=== PATIENT | female | born 1955 | race Caucasian/White ===

== ENCOUNTER 2016-10-12 10:56 | Emergency (ER) | payer OTHER ==
--- NOTE | ~2016-10-12 | CT71 ---
[facility] A Service of [facility] & [facility] RADIOLOGY TEXT RESULTS PATIENT: LUCIA CABEZAS LOCATION: [facility] : 59 UNIT #: [id number] AGE: [address]: Chidi Mckenzie MD SEX: F ORDER DR: [id number] [facility] [address] [place], [place] [address] [id number] E MR#: [id number] Acc #: [id number] NAME: LUCIA CABEZAS : 1955 SEX: F STUDY DATE/TIME: 10/12/2016 11:23 UNIT: [facility] ROOM: STUDY DESCRIPTION: CT Head Wo Contrast Attending Physician: Chidi Mckenzie M.D. Referring Physician: Primary Care Physician No Ordering Physician: Chidi Mckenzie M.D. Primary Care Physician: Primary Care Physician No MEDICAL IMAGING REPORT This report is preliminary unless electronic signature is present EXAM CT head without contrast INDICATIONS Generalized weakness, falling. Symptoms today. COMPARISON 08/04/[address] exam was performed with one or more of the following radiation dose reduction techniques: automatic exposure control, adjustment of mA and/or kV according to patient size, and iterative reconstruction. FINDINGS No evidence of intracranial hemorrhage, acute cortical based infarction, focal mass lesion, or hydrocephalus. The included orbits and paranasal sinuses are unremarkable. The bone windows are unremarkable. IMPRESSION No acute intracranial abnormality. Dictated by... Jasiel Bright M.D. THIS IS AN ELECTRONICALLY VERIFIED REPORT Jasiel Bright M.D. at 10/13/2016 9:19 AM Danielle TD: 10/12/2016 13:57 JOB #: [id number] MEDICAL IMAGING REPORT Page 1 of 1 COPY
--- NOTE | ~2016-10-12 | CR2 ---
[facility] A Service of [facility] & [facility] RADIOLOGY TEXT RESULTS PATIENT: LUCIA CABEZAS LOCATION: [facility] : 59 UNIT #: [id number] AGE: [address]: Chidi Mckenzie MD SEX: F ORDER DR: [id number] [facility] [address] [place], [place] [address] [id number] E MR#: [id number] Acc #: [id number] NAME: LUCIA CABEZAS : 1955 SEX: F STUDY DATE/TIME: 10/12/2016 10:25 UNIT: [facility] ROOM: STUDY DESCRIPTION: CR Abdomen Acute Series Attending Physician: Chidi Mckenzie M.D. Ordering Physician: Chidi Mckenzie M.D. MEDICAL IMAGING REPORT This report is preliminary unless electronic signature is present EXAM Acute abdominal series INDICATIONS Shortness of breath, cough, constipation for [address] abdomen and pelvis from 01/14/2015. FINDINGS There is atelectasis in the lung bases. There is no free air under the diaphragm. The bowel gas pattern is non-obstructed. Cholecystectomy clips. Degenerative changes lumbar spine. IMPRESSION Non-obstructed bowel gas pattern. Dictated by... Jasiel Bright M.D. THIS IS AN ELECTRONICALLY VERIFIED REPORT Jasiel Bright M.D. at 10/13/2016 9:19 AM ARS/pcl TD: 10/12/2016 11:39 JOB #: [id number] MEDICAL IMAGING REPORT Page 1 of 1 COPY
--- NOTE | ~2016-10-12 | EKG ---
PATIENT: LUCIA CABEZAS UNIT #: [id number] Ventricular Rate: 100 BPM Atrial Rate: 100 BPM P-R Interval: 162 ms QRS Duration: 84 ms Q-T Interval: 350 ms QTC Calculation(Bezet): 451 ms P [place]: 49 degrees Calculated R [place]: -68 degrees Calculated T [place]: 41 degrees Diagnosis Line: Normal sinus rhythm Diagnosis Line: Possible Left atrial enlargement Diagnosis Line: Left axis deviation Diagnosis Line: Cannot rule out Inferior infarct , age Diagnosis Line: undetermined Diagnosis Line: Abnormal ECG Diagnosis Line: When compared with ECG of 16-JAN-2016 20:31, Diagnosis Line: QRS axis Shifted left Diagnosis Line: Confirmed by ROSEMARIE HART MD ([id number]) on 10/12/2016 Diagnosis Line: 6:39:38 PM INTERPRETING MD: HAILEY JHA
[2016-10-12 10:35] LABS: BASOPHIL# 0.1 X10e3 (0-0.3); BASOPHIL% 1.2 % (0-2.5); EOSINOPHIL# 0.2 X10e3 (0-0.7); EOSINOPHIL% 2.7 % (0.0-7.0); HEMOGLOBIN 13.5 gm/dL (12.0-16.0); LYMPHOCYTE# 1.5 X10e3 (1.0-3.5); LYMPHOCYTE% 16.2 % (17.0-45.0); MEAN CELL VOLUME 94.3 FL (83-96); MEAN CORPUSCULAR HEMOGLOBIN 30.3 PG (28-34); MEAN CORPUSCULAR HGB CONC 32.1 g/dL (30-36); MEAN PLATELET VOLUME 10.8 FL (6.5-11.5); MONOCYTE# 0.6 X10e3 (0-1.0); MONOCYTE% 6.5 % (3.0-12.0); NEUTROPHIL# 6.6 X10e3 (1.5-7.1); NEUTROPHIL% 73.4 % (40-75); PLATELET COUNT 214 X10e3 (140-420); RED BLOOD COUNT 4.45 X10e (3.90-5.30); RED CELL DISTRIBUTION WIDTH 12.9 % (11.0-15.5); WHITE BLOOD COUNT 9.1 X10e3 (4.0-10.5)
[2016-10-12 10:41] LABS: DIFF IND NO
[~2016-10-12 10:56] MED LIST: ASPIRIN81 M2 PO; CARDIZEM60 MG PO; CYCLOBENZAPRINE5 MG PO; HYDROCHLOROTHIA25 MG PO; KLONOPIN PO; LIPITOR20 MG PO; MOBIC7.5 MG/5 M PO; NICOTINE1 EAC1 TD; SEROQUEL300 MG PO; SYNTHROID0.1 MG PO; TOPAMAX50 MG PO
[2016-10-12 10:58] LABS: INR 0.9; PARTIAL THROMBOPLASTIN TIME 23.1 SECONDS (23.5-31.3); PROTHROMBIN TIME (PATIENT) 9.8 SECONDS (9.6-11.5)
[2016-10-12 11:10] LABS: ALBUMIN SERUM 3.8 g/dL (3.5-5.0); ALKALINE PHOSPHATASE 89 U/L (32-92); ALT (SGPT) 21 U/L (10-40); AST (SGOT) 16 U/L (10-42); BILIRUBIN, DIRECT 0.1 mg/dL (0.0-0.2); BILIRUBIN,INDIRECT 0.4 mg/dL (0.0-0.9); BILIRUBIN,TOTAL 0.5 mg/dL (0.2-2.0); BLOOD UREA NITROGEN 7 mg/dL (9-23); BUN/CREATININE RATIO 4.66; CALCIUM SERUM 9.3 mg/dL (8.4-10.2); CARBON DIOXIDE 24 mmol/L (22-31); CHLORIDE 109 mmol/L (100-111); CREATININE SERUM 1.5 mg/dL (0.6-1.4); GLOM FILT RATE Estimated 37.8 mL/min (>60); GLUCOSE FASTING 177 mg/dL (70-110); POTASSIUM 3.9 mmol/L (3.5-5.1); PROTEIN TOTAL SERUM 6.7 g/dL (6.0-8.3); SODIUM 139 mmol/L (135-145)
[2016-10-12 11:11] LABS: ALCOHOL BLOOD <5 mg/dL ([, 0])
[2016-10-12 12:00] LABS: POC - CKMB 1.3 ng/mL (0.0-7.9); POC - TROPONIN <0.05 ng/mL (<=0.05)
[2016-10-12 12:09] LABS: URINE SOURCE CLEAN CATCH
[2016-10-12 12:16] LABS: URINE APPEARANCE CLEAR; URINE BILIRUBIN NEG (NEG); URINE BLOOD NEG (NEG); URINE COLOR YELLOW; URINE GLUCOSE NEG (NEG); URINE KETONE NEG (NEG); URINE LEUKOCYTE ESTERASE NEG (NEG); URINE NITRATE NEG (NEG); URINE PH 6.5 (5-8); URINE PROTEIN NEG (NEG); URINE SPECIFIC GRAVITY 1.006 (1.003-1.035); URINE UROBILINOGEN 0.2 MG/DL (NEG)
[2016-10-12 12:19] LABS: CULTURE INDICATED? NO
[2016-10-12 12:45] LABS: AMPHETAMINE NEG (NEG); BARBITURATES NEG (NEG); BENZODIAZEPINES POS (NEG); COCAINE NEG (NEG); MARIJUANA NEG (NEG); OPIATES POS (NEG); TRICYCLIC ANTIDEPRESSANTS POS (NEG); U METHADONE NEG (NEG)
[2016-10-12 12:45] LABS: POC - CKMB 1.3 ng/mL (0.0-7.9); POC - TROPONIN <0.05 ng/mL (<=0.05)
[2017-01-21] MEDS ORDERED: TOPAMAX PO (12:31)
[2017-01-21] MEDS ORDERED: HYDRALAZINE HCL25 MG PO (12:32)
[2017-01-21] MEDS ORDERED: LEVOTHYROXINE88 MCG PO (12:32)
[2017-01-21] MEDS ORDERED: DESYREL50 MG PO (12:33)
[2017-01-21] MEDS ORDERED: QUETIAPINE FUM200 MG PO (12:33)
[2017-01-21] MEDS ORDERED: QUETIAPINE FUMA25 MG PO (12:33)
[2017-01-21] MEDS ORDERED: AMLODIPINE BESYL5 MG PO (12:33)
[2017-01-21] MEDS ORDERED: LAMICTAL150 MG PO (12:34)
[2017-01-21] MEDS ORDERED: GLUCOTROL PO (12:34)
[2017-01-21] MEDS ORDERED: LASIX PO (12:34)
[2017-01-21] MEDS ORDERED: KLONOPIN1 MG PO (12:35)
== END 2016-10-12 13:29 | disposition home or self-care (01) ==
LOC: CED 10:56
PROVIDERS: Emergency Medicine
DX: J40 Bronchitis, not specified as acute or chronic (principal); R53.1 Weakness; I12.9 Hypertensive chronic kidney disease with stage 1 through stage 4 chronic kidney disease, or unspecified chronic kidney disease; N18.9 Chronic kidney disease, unspecified; F17.200 Nicotine dependence, unspecified, uncomplicated; F31.9 Bipolar disorder, unspecified; B19.20 Unspecified viral hepatitis C without hepatic coma; Z88.0 Allergy status to penicillin; Z91.040 Latex allergy status
CPT/HCPCS: 36415; 70450; 74022; 80048; 80076; 80307; 81003; 82553; 82947; 84484; 85025; 85610; 85730; 93005; 94640; 96360; 99283; 99284; G0480

== ENCOUNTER → 2017-01-22 | Outpatient (CLI) | payer OTHER ==
[~2017-01-22] VITALS: Ht 170.2 cm; Wt 79.6 kg
[~2017-01-22] MED LIST changes: +AMLODIPINE BESYL5 MG PO; +DESYREL50 MG PO; +GLUCOTROL PO; +HYDRALAZINE HCL25 MG PO; +KLONOPIN1 MG PO; +LAMICTAL150 MG PO; +LASIX PO; +LEVOTHYROXINE88 MCG PO; +QUETIAPINE FUM200 MG PO; +QUETIAPINE FUMA25 MG PO; +TOPAMAX PO
--- NOTE | ~2017-01-22 | XA51 ---
[facility] A Service of [facility] & [facility] RADIOLOGY TEXT RESULTS PATIENT: LUCIA CABEZAS LOCATION: [facility] : 59 UNIT #: [id number] AGE: [address]: Conor Caballero MD SEX: F ORDER DR: [id number] [id number] [place], [place] [address] [id number] O MR#: [id number] Acc #: [id number] NAME: LUCIA CABEZAS : 1955 SEX: F STUDY DATE/TIME: 01/22/2017 8:01 UNIT: [facility] ROOM: STUDY DESCRIPTION: XA BX Bone Marrow Attending Physician: Conor Caballero M.D. Ordering Physician: Conor Caballero M.D. Primary Care Physician: No Primary Care Physician MEDICAL IMAGING REPORT This report is preliminary unless electronic signature is present EXAM Bone marrow biopsy. INDICATION Multiple myeloma with hypercalcemia. FINDINGS Please see CT GUIDE for result text. Dictated by... Britney David M.D. THIS IS AN ELECTRONICALLY VERIFIED REPORT Britney David M.D. at 01/23/2017 4:45 PM AFF/luis manuel TD: 01/23/2017 09:19 JOB #: [id number] MEDICAL IMAGING REPORT Page 1 of 1 COPY
--- NOTE | ~2017-01-22 | CT134 ---
[facility] A Service of [facility] & [facility] RADIOLOGY TEXT RESULTS PATIENT: LUCIA CABEZAS LOCATION: [facility] : 59 UNIT #: [id number] AGE: [address]: Conor Caballero MD SEX: F ORDER DR: [id number] [facility] [place], [place] [address] [id number] O MR#: [id number] Acc #: [id number] NAME: LUCIA CABEZAS : 1955 SEX: F STUDY DATE/TIME: 01/22/2017 8:01 UNIT: [facility] ROOM: STUDY DESCRIPTION: CT Guide Attending Physician: Conor Caballero M.D. Ordering Physician: Conor Caballero M.D. Primary Care Physician: No Primary Care Physician MEDICAL IMAGING REPORT This report is preliminary unless electronic signature is present EXAM CT-guided bone marrow biopsy. INDICATION Multiple myeloma with hypercalcemia. TECHNIQUE This CT exam was performed with one or more of the following radiation dose reduction techniques: automatic exposure control, adjustment of mA and/or kV according to patient size, and iterative reconstruction. PROCEDURE There risks, benefits, and alternatives to the procedure were explained to the patient and signed informed consent was obtained. Patient was placed prone on the CT scanner gantry. Preliminary CT scan was performed through the region of interest. An appropriate site overlying the left iliac bone was selected. The overlying skin was marked. Patient was prepped and draped in the usual sterile fashion. Time-out was performed as per protocol. Skin and subcutaneous tissues were anesthetized with buffered lidocaine and a bone marrow biopsy needle was advanced into the left iliac bone. Repeat CT scan confirmed appropriate trajectory of the needle which was then advanced into the bone. Bone marrow aspirate was obtained. Following this, the needle was advanced further into the marrow and then removed which appeared to yield an adequate core sample. Manual pressure was applied until hemostasis was obtained. The patient did receive moderate sedation consisting of 8 mg of Versed and 200 mcg of fentanyl. I supervised the IVR nurse and monitored the patient's vital signs for a total of 10 minutes of [id number] time. IMPRESSION Technically successful bone marrow biopsy as noted above. CT was used during the procedure and permanent images were saved. [facility] A Service of [facility] & [facility] RADIOLOGY TEXT RESULTS PATIENT: LUCIA CABEZAS LOCATION: [facility] : 59 UNIT #: [id number] AGE: [address]: Conor Caballero MD SEX: F ORDER DR: Dictated by... Britney David M.D. THIS IS AN ELECTRONICALLY VERIFIED REPORT Britney David M.D. at 01/23/2017 4:45 PM AFF/luis manuel TD: 01/23/2017 09:15 JOB #: [id number] MEDICAL IMAGING REPORT Page 1 of 1 COPY
[2017-01-22 07:08] LABS: HEMATOCRIT 47.4 % (35.0-45.0); HEMOGLOBIN 15.7 gm/dL (12.0-16.0); MEAN CELL VOLUME 92.3 FL (83-96); MEAN CORPUSCULAR HEMOGLOBIN 30.6 PG (28-34); MEAN CORPUSCULAR HGB CONC 33.2 g/dL (30-36); MEAN PLATELET VOLUME 9.3 FL (6.5-11.5); RED BLOOD COUNT 5.13 X10e (3.90-5.30); RED CELL DISTRIBUTION WIDTH 13.3 % (11.0-15.5); WHITE BLOOD COUNT 7.6 X10e3 (4.0-10.5)
[2017-01-22 07:21] LABS: PARTIAL THROMBOPLASTIN TIME 26.7 SECONDS (23.5-31.3); PROTHROMBIN TIME (PATIENT) 10.7 SECONDS (10.0-11.7)
== END | disposition home or self-care (01) ==
LOC: CIVR 06:37
PROVIDERS: Internal Medicine Medical Oncology
DX: E83.52 Hypercalcemia (principal); I12.9 Hypertensive chronic kidney disease with stage 1 through stage 4 chronic kidney disease, or unspecified chronic kidney disease; N18.3 Chronic kidney disease, stage 3 (moderate); D89.2 Hypergammaglobulinemia, unspecified; B18.2 Chronic viral hepatitis C
CPT/HCPCS: 38221; G0364; 36415; 77012; 82947; 85027; 85610; 85730; 88305; 88311; 88313; J2250; J3010